=== PATIENT | female | born 1945 | race Two or more races ===

== ENCOUNTER 2016-12-26 10:04 | Day surgery (SDC) | payer MEDICARE ==
[2016-12-26] MEDS ORDERED: FENTANYL PF 100MCG/2ML VIAL IV ONE (15:47)
[2016-12-26] MEDS ORDERED: PROPOFOL 10 MG/ML VIAL IV ONE (15:47)
[2016-12-26] MEDS ORDERED: LIDOCAINE 2% MDV (20MG/ML) 20ML VIAL IV ONE (15:47)
--- NOTE | 2016-12-28 12:50 | Operative Note ---
DATE OF SURGERY: 12/26/2016 OPERATION: ESOPHAGOGASTRODUODENOSCOPY with biopsy and electrocautery snare polypectomy. INDICATION: Chronic gastroesophageal reflux with pyrosis. The patient tried reducing or stopping her medication but had severe recurrent heartburn. Upper endoscopy is performed at this time for further evaluation. Her last endoscopy was some 15 years ago. ANESTHESIA: Intravenous sedation was administered by the department of anesthesiology and included Diprivan titrated to effect. PROCEDURE: Following informed consent from this alert individual, including a discussion of the risks and benefits of the procedure and an opportunity for the patient to ask questions, the patient was in the left lateral decubitus position. The Olympus [id number] video endoscope was inserted into the esophagus without resistance. Initially the esophagus had a normal appearance with normal folds and distensibility. The squamocolumnar junction was smooth and well defined. There was a moderate-size hiatal hernia noted extending 3-4 cm in size. The hernia sac itself was free from mucosal changes. The subdiaphragmatic stomach was entered. On the greater curvature of the proximal gastric antrum, there was a sessile 6-7 mm polyp which appeared somewhat inflamed. The polyp was removed with electrocautery snare polypectomy with a white eschar noted. There was no bleeding. The antrum was otherwise unremarkable. Pylorus was patent. The duodenal bulb, sweep, and descending duodenum were examined in a serial fashion and found to be normal. The endoscope was then drawn back into the body of the stomach. Retroflexion accomplished following air insufflation revealed [id number] size hiatal hernia. The endoscope was then straightened and withdrawn back into the esophagus. At approximately 20 cm from the incisors, there was what appeared to be an inlet patch noted with some linear superficial erosion. Biopsies from this site were taken. The endoscope was then withdrawn. The patient tolerated the procedure well and was returned to the recovery area in stable condition. IMPRESSION: 1. Possible inflamed inlet patch, biopsies taken. 2. [id number] size hiatal hernia measuring 3-4 cm in size. 3. A 7 mm gastric antral polyp along the greater curvature removed with electrocautery snare. RECOMMENDATION: At this point, the patient was advised to continue with her current medication on a daily basis. This has controlled her pyrosis. She will follow up with Dr. Pathak. Further recommendations forthcoming pending biopsies. As always, thank you for allowing me to participate in the care of your patient. CC: YOSSI PATHAK MD, FACP [place]
== END 2016-12-26 12:45 | disposition home or self-care (01) ==
LOC: HOP 10:04
PROVIDERS: ATTEND Internal Medicine Gastroenterology
DX: K21.9 Gastro-esophageal reflux disease without esophagitis (principal); K22.6 Gastro-esophageal laceration-hemorrhage syndrome; D13.1 Benign neoplasm of stomach; E11.9 Type 2 diabetes mellitus without complications; E03.9 Hypothyroidism, unspecified; K44.9 Diaphragmatic hernia without obstruction or gangrene
CPT/HCPCS: 43251; 00740; J3010